=== PATIENT | female | born 1985 | race Caucasian/White ===

== ENCOUNTER → 2020-09-19 09:59 | Outpatient (CLI) | payer OTHER, SELFPAY ==
[2020-09-19 11:55] LABS: Add Manual Diff / Slide Review NO; Basophils Absolute Auto 0 /uL (0-100); Basophils Percent Auto 0.1 % (0-2); Eosinophils Absolute Auto 100 /uL (0-450); Eosinophils Percent Auto 0.8 % (2-4); Hematocrit 34.8 % (36-46); Hemoglobin 11.8 g/dL (12.0-16.0); Lymphocytes Absolute Auto 1200 /uL (1100-4500); Mean Corpuscular Hemoglobin 30.8 PG (26-34); Mean Corpuscular Volume 90.6 fL (80-100); Monocytes Absolute Auto 400 /uL (0-900); Monocytes Percent Auto 4.9 % (3-14); Neutrophils Absolute Auto 6400 /uL (1500-7000); Neutrophils Percent Auto 79.2 % (50-75); Platelet Count 213 X10^3/uL (150-400); Red Blood Cell Count 3.84 X10^6/uL (4.0-5.2); Red Cell Distribution Width 12.2 % (11.6-14.8); White Blood Cell Count 8.1 X10^3/uL (4.5-11.0)
[2020-09-19 13:36] LABS: Appearance Urine UA CLEAR; Bilirubin Urine UA NEGATIVE (NEGATIVE); Color Urine UA YELLOW; Glucose Urine UA NEGATIVE (Negative); Ketones Urine UA NEGATIVE (NEGATIVE); Leukocyte Esterase Urine UA NEGATIVE (NEGATIVE); Nitrite Urine UA NEGATIVE (Negative); Occult Blood Urine UA NEGATIVE (Negative); Protein Urine UA NEGATIVE (Negative); Specific Gravity Urine UA 1.015 (1.000-1.035); Urobilinogen Urine UA 0.2 E.U./dL (0.2)
[2020-09-19 16:37] LABS: Hepatitis B Surface Antigen NEGATIVE s/c (NEGATIVE)
[2020-09-19 16:54] LABS: HIV 1 & 2 Ab/Ag 4th Gen Combo NEGATIVE (NEGATIVE); Hep C Virus Ab w/Reflex Quant NEGATIVE s/c (NEGATIVE)
[2020-09-20 05:37] LABS: RPR Screen Non Reactive (Non Reactive)
[2020-09-20 08:28] LABS: Varicella IgG Antibody 387 index (Immune >165)
== END ==
PROVIDERS: PCP Obstetrics & Gynecology; Referring Provider Obstetrics & Gynecology; Visit Provider Obstetrics & Gynecology
DX: O09.521 Supervision of elderly multigravida, first trimester (principal); Z36.0 Encounter for antenatal screening for chromosomal anomalies
CPT/HCPCS: 36415; 80055; 81003; 81420; 86787; 86803; 86850; 86900; 86901; 87086; 87389

== ENCOUNTER → 2025-11-02 13:23 | Outpatient (CLI) | payer OTHER, SELFPAY ==
--- NOTE | 2025-11-02 13:25 | DI.US.S_ITS ---
PROCEDURE: US EXTREMELY NONVASC UPPER RT INDICATIONS: right dorsal wrist suspected ganglion TECHNIQUE: Real-time scanning was performed of the right wrist, with image documentation. COMPARISON: [facility], [place], US EXTREMITY NONVASC LOWER RT, 11/02/2025, 13:39. FINDINGS: Focused ultrasound examination over dorsal aspect of right wrist at the area of concern shows 0.9 x 0.5 x 1 cm complex cystic structure within deep soft tissue and show no internal vascularity. IMPRESSION: Finding may represent a ganglion cyst over dorsal aspect of right wrist. Clinical correlation and follow-up is recommended. Dictated by: Desean Pickett M.D. on 11/02/2025 at 14:30 Approved by: Desean Pickett M.D. on 11/02/2025 at 14:33
--- NOTE | 2025-11-02 13:25 | DI.US.S_ITS ---
PROCEDURE: US EXTREMITY NONVASC LOWER LT INDICATIONS: left thigh mass TECHNIQUE: Real-time scanning was performed of the left thigh, with image documentation. COMPARISON: None. FINDINGS: Focused ultrasound examination of medial left mid thigh shows 1.7 x 1 x 1.2 cm echogenic and solid appearing structure within subcutaneous soft tissue and show no internal vascularity. IMPRESSION: Finding likely represent lipoma in medial left thigh soft tissue at the area of concern. Clinical correlation and follow-up is recommended. Dictated by: Desean Pickett M.D. on 11/02/2025 at 14:28 Approved by: Desean Pickett M.D. on 11/02/2025 at 14:29
--- NOTE | 2025-11-02 13:25 | DI.US.S_ITS ---
PROCEDURE: US EXTREMITY NONVASC LOWER RT INDICATIONS: right thigh mass TECHNIQUE: Real-time scanning was performed of the right thigh, with image documentation. COMPARISON: [facility], [place], US EXTREMITY NONVASC LOWER LT, 11/02/2025, 13:37. FINDINGS: Focused ultrasound examination of medial right mid thigh at the area of concern shows 1.2 x 0.5 x 1.1 cm hyperechoic and solid appearing nodule in subcutaneous soft tissue. No internal vascularity. IMPRESSION: Suggestion of small lipoma in medial right thigh soft tissue, clinical correlation and follow-up is recommended. Dictated by: Desean Pickett M.D. on 11/02/2025 at 14:29 Approved by: Desean Pickett M.D. on 11/02/2025 at 14:30
== END ==
LOC: US 13:24
PROVIDERS: PCP Physician Assistant; Referring Provider Physician Assistant; Visit Provider Physician Assistant
DX: R22.41 Localized swelling, mass and lump, right lower limb (principal); R22.42 Localized swelling, mass and lump, left lower limb; M67.431 Ganglion, right wrist
CPT/HCPCS: 76882